=== PATIENT | male | born 1960 | race Asian ===

== ENCOUNTER 2016-08-21 08:02 | Emergency (ER) | payer OTHER ==
[2016-08-21 08:17] VITALS: TEMP 97.7
--- NOTE | 2016-08-21 08:38 | PDOC ---
History of Present Illness - General History Source: Patient Exam Limitations: No Limitations - History of Present Illness Initial Comments: CHIEF COMPLAINT: 56 y/o afebrile male with PMH DM, HTN c/o RUQ abd pain and right side pain for the past 5 days. HISTORY OF PRESENT ILLNESS: The patient states the pain is constant but changes in severity. He was seen at [facility] 2 days ago, had blood work, a CT scan of the abd/pelvis and an abd ultrasound. He was discharged to home without any medication because he has Percocet at home. He states the percocet does help reduce the pain. He denies f/c, n/v/d, CP, SOB, back pain, hematuria. He was instructed in discharge paperwork to f/u with Dr. Zaldivar and Dr. Sevilla because he was found to have a questionable gallbladder mass on both US and CT scan. He has not called either physician. Vital signs on arrival are notable for BP of 149/92. REVIEW OF SYSTEMS: GENERAL/CONSTITUTIONAL: No fever/chills. No weakness. No weight change. HEAD, EYES, EARS, NOSE AND THROAT: No change in vision. No ear pain or discharge. No sore throat. CARDIOVASCULAR: No chest pain or shortness of breath. RESPIRATORY: No cough, wheezing, or hemoptysis. GASTROINTESTINAL: +right flank and RUQ pain. No nausea, vomiting, diarrhea, constipation. GENITOURINARY: No dysuria, frequency, or change in urination. MUSCULOSKELETAL: No joint or muscle swelling or pain. No neck or back pain. SKIN: No rash or easy bruising. NEUROLOGIC: No headache, vertigo, loss of consciousness, or loss of sensation. PHYSICAL EXAM: GENERAL: The patient is awake, alert, and fully oriented, in moderate discomfort. HEAD: Normal with no signs of trauma. ENT: Pupils equal, round and reactive to light, extraocular movements intact, sclera anicteric, conjunctiva clear. Neck supple. LUNGS: Clear to auscultation bilaterally. Normal excursion. No respiratory distress or use of accessory muscles. CV: RRR, S1/S2, no MRG. Cap refill < 2 sec. ABDOMEN: Soft, non-distended, TTP of RUQ with negative Ramirez's sign. TTP of right flank. No RLQ TTP. BACK: No CVA TTP b/l. EXTREMITIES: Normal range of motion, no edema. NEUROLOGICAL: Normal speech, normal gait. CN II-XII grossly intact. PSYCH: Normal mood, normal affect. SKIN: Warm, dry, normal turgor, no rashes or lesions noted. <Marisela Lilly - Last Filed: 08/21/16 10:08> <Allen Clements - Last Filed: 08/24/16 20:16> - General Chief Complaint: Pain Stated Complaint: ABD PAIN Time Seen by Provider: 08/21/16 08:26 Past History - Past Medical History Diabetes: Yes HTN: Yes Hypercholesterolemia: Yes - Psycho/Social/Smoking Cessation Hx Suicidal Ideation: No Smoking History: Current every day smoker Number of Cigarettes Smoked Daily: 10 Information on smoking cessation initiated: No <Marisela Lilly - Last Filed: 08/21/16 10:08> <Allen Clements - Last Filed: 08/24/16 20:16> - Past Medical History Allergies/Adverse Reactions: Allergies Allergy/AdvReac Type Severity Reaction Status Date / Time No Known Allergies Allergy Verified 08/21/16 08:12 Home Medications: Ambulatory Orders Famotidine [Pepcid -] 20 mg PO DAILY 08/21/16 Glyburide 5 mg PO DAILY 08/21/16 Ibuprofen 600 mg PO Q6H #30 tablet 08/21/16 Lisinopril [Prinivil] 20 mg PO DAILY 08/21/16 Metformin HCl 500 mg PO DAILY 08/21/16 Omeprazole 20 mg PO DAILY 08/21/16 Simvastatin [Zocor -] 20 mg PO DAILY 08/21/16 *Physical Exam - Vital Signs Last Vital Signs Temp Pulse Resp BP Pulse Ox 97.7 F 78 18 149/92 97 08/21/16 08:07 08/21/16 08:07 08/21/16 08:07 08/21/16 08:07 08/21/16 08:07 <Marisela Lilly - Last Filed: 08/21/16 10:08> - Vital Signs Last Vital Signs Temp Pulse Resp BP Pulse Ox 97.7 F 68 18 166/94 97 08/21/16 08:07 08/21/16 11:13 08/21/16 11:13 08/21/16 11:13 08/21/16 11:13 <Allen Clements - Last Filed: 08/24/16 20:16> ED Treatment Course - LABORATORY CBC & Chemistry Diagram: 08/21/16 08:50 08/21/16 08:39 <Marisela Lilly - Last Filed: 08/21/16 10:08> - LABORATORY CBC & Chemistry Diagram: 08/21/16 08:50 08/21/16 08:39 - ADDITIONAL ORDERS Additional order review: 08/21/16 08:50 RBC 4.56 MCV 87.5 MCHC 33.2 RDW 13.4 MPV 8.2 Neutrophils % 59.3 Lymphocytes % 29.2 Monocytes % 6.6 Eosinophils % 4.1 Basophils % 0.8 - Medications Given in the ED: ED Medications Discontinued Medications Generic Name Dose Route Start Last Admin Trade Name Freq PRN Reason Stop Dose Admin Ketorolac Tromethamine 30 mg 08/21/16 08:53 08/21/16 09:12 Toradol Injection - IVPUSH 08/21/16 08:54 30 mg ONCE ONE Administration <Allen Clements - Last Filed: 08/24/16 20:16> Medical Decision Making - Medical Decision Making A/P: 56 y/o male with right sided abd pain for the past 5 days. Was seen at another ER 2 days ago and had complete work up including CT scan and ultrasound , which showed questionable gallbladder mass. THe patient was instructed to f/ u with Dr. Sevilla and Dr. Zaldivar and hasn't. He is here for continued pain. Will do blood work and check urine and compare to results from Wednesday, which the patient has brought with him. CT scan (From [facility] 08/19/16) IMPRESSION: Stable focal enhancing gallbladder lesion. Differential would include small gallbladder wall mass/neoplasm versus a focus of adenomyomatosis. Fatty liver Abdominal Ultrasound (From [facility] 08/19/16) IMPRESSION: Liver is normal in size with diffusely increased echogenicity suggestive for hepatic steatosis. Cannot exclude focal wall thickening of the gallbladder fundus. Differential considerations would include a phrygian cap or focal adenomyomatosis, however, a gallbladder fundal mass or neoplasm cannot be excluded. Labs unremarkable today. The patient's initial pain scale was 10/10. After Toradol, his pain is now reported as a 4/10. Will discharge to home with Rx for Ibuprofen which I instructed him and his son to take every 6 hours with food. Instructed him also to continue taking his percocet for break through pain. Suggested heating pad to the affected area. Strongly encouraged him to f/u with his PCP, Dr. Zaldivar, as well as Dr. Sevilla, [facility]. The patient was instructed to return to the ER with any worsening or concerning symptoms. The patient verbalizes understanding of all instructions, has no further questions and is awaiting discharge. <Mairsela Lilly - Last Filed: 08/21/16 10:08> - Medical Decision Making 08/24/16 20:11 The patient was seen and evaluated in conjunction with VÍCTOR Lilly under my direct supervision, ancillary studies were reviewed. I agree with the plan as outlined by VÍCTOR Lilly . <Allen Clements - Last Filed: 08/24/16 20:16> *DC/Admit/Observation/Transfer <Marisela Lilly - Last Filed: 08/21/16 10:08> <Allen Clements - Last Filed: 08/24/16 20:16> Diagnosis at time of Disposition: Abdominal pain Qualifiers: Abdominal location: right upper quadrant Qualified Code(s): R10.11 - Right upper quadrant pain - Discharge Dispostion Disposition: HOME Condition at time of disposition: Improved - Prescriptions Prescriptions: Ibuprofen 600 mg PO Q6H #30 tablet - Referrals Referrals: Lore Zaldivar [Primary Care Provider] - Daryl Sevilla MD [Staff Physician] - - Patient Instructions Printed Discharge Instructions: DI for Abdominal Pain-Adult Additional Instructions: Discharge Instructions: -Take Ibuprofen as prescribed with food every 6 hours for pain; a prescription was sent to [facility] -Take the pain medication you have at home (Percocet) for break through pain -Use heating pad to the affected area -Follow up with Dr. Zaldivar and Dr. Sevilla as soon as possible -Return to the ER with any worsening or concerning symptoms
[2016-08-21] MEDS ORDERED: KETOROLAC TROMETHAMINE 30 MG/1 ML VIAL IVPUSH ONE (08:53)
[2016-08-21 09:08] LABS: BASOPHIL 0.8 % (0-2.0); EOSINOPHIL 4.1 % (0-4.5); MCHC 33.2 g/dl (32.0-35.9); MEAN CELL VOLUME 87.5 fl (80-96); MEAN PLT VOLUME 8.2 fl (7.5-11.1); NEUTROPHILS 59.3 % (42.8-82.8); PLATELET COUNT 304 K/MM3 (134-434); RDW 13.4 % (11.9-15.9); WHITE BLOOD COUNT 9.2 K/mm3 (4.0-10.0)
[2016-08-21] MEDS ORDERED: KETOROLAC TROMETHAMINE 30 MG/1 ML VIAL ONE (09:09)
[2016-08-21 09:10] LABS: URINE APPEARANCE CLEAR; URINE BILIRUBIN NEGATIVE (NEGATIVE); URINE BLOOD NEGATIVE (NEGATIVE); URINE COLOR COLORLESS; URINE GLUCOSE (UA) 3+ (NEGATIVE); URINE KETONE NEGATIVE (NEGATIVE); URINE LEUK ESTERASE NEGATIVE (NEGATIVE); URINE NITRITE NEGATIVE (NEGATIVE); URINE PROTEIN NEGATIVE (NEGATIVE); URINE UROBILINOGEN NEGATIVE E.U./dl (0.2-1.0)
[2016-08-21 09:35] LABS: ALBUMIN 3.8 g/dl (3.4-5.0); ALK PHOS 66 U/L (45-117); ANION GAP 8 (8-16); BILIRUBIN,TOTAL 0.3 mg/dL (0.2-1.0); CALCIUM 8.9 mg/dL (8.5-10.1); CO2 26 mmol/L (21-32); CREATININE 1.3 mg/dL (0.7-1.3); GLUCOSE,RANDOM 278 mg/dL (74-106); SGOT/AST 36 U/L (15-37); SGPT/ALT 50 U/L (12-78); TOT PROT 7.4 g/dl (6.4-8.2)
[2016-08-21 09:37] LABS: TROPONIN I < 0.02 ng/ml (0.00-0.05)
[2016-08-21 11:14] VITALS: BP 166/94; PULSE 68
== END 2016-08-21 11:14 | disposition home or self-care (01) ==
LOC: JER 08:02
PROC: 3E0333Z Introduction of Anti-inflammatory into Peripheral Vein, Percutaneous Approach (ICD-10-PCS; principal; 2016-08-21)
DX: R10.11 Right upper quadrant pain (principal); I10 Essential (primary) hypertension; E11.9 Type 2 diabetes mellitus without complications; E78.00 Pure hypercholesterolemia, unspecified; F17.210 Nicotine dependence, cigarettes, uncomplicated
CPT/HCPCS: 36415; 80053; 81003; 82550; 83690; 84484; 85025; 96374; 99283-25